=== PATIENT | male | born 1985 | race African-American/Black ===

== ENCOUNTER 2024-12-27 00:42 | Emergency (ER) | payer MEDICAID ==
[~2024-12-27] VITALS: Ht 180.3 cm; Wt 62.0 kg
[2024-12-27 00:45] VITALS: O2SAT 98
[2024-12-27] MEDS: ACETAMINOPHEN 325MG TABLET PO ONE (01:45)
[2024-12-27] MEDS: BACITRACIN ZINC OINT UDPKT TOP ONE (01:45)
[2024-12-27] MEDS: TETANUS, DIPHTHERIA, PERTUSSIS VAC/PF 0.5ML (>10YR OLD) IM ONE (01:49)
[2024-12-27] MEDS ORDERED: NAPR220C61 MT (04:12)
[2024-12-27 04:30] VITALS: BP 114/75; PULSE 62; RESP 12; TEMP 36.8; O2SAT 100
== END 2024-12-27 04:33 | disposition home or self-care (01) ==
LOC: ER 00:42
DX: S01.112A Laceration without foreign body of left eyelid and periocular area, initial encounter (principal); S09.90XA Unspecified injury of head, initial encounter; F17.200 Nicotine dependence, unspecified, uncomplicated; Z98.890 Other specified postprocedural states; W22.10XA Striking against or struck by unspecified automobile airbag, initial encounter; Y93.89 Activity, other specified; Y92.89 Other specified places as the place of occurrence of the external cause; Y99.8 Other external cause status
CPT/HCPCS: 71045; 73030; 90471; 90715; 99285